=== PATIENT | male | born 1980 | race Caucasian/White ===

== ENCOUNTER 2018-05-22 05:45 | Day surgery (SDC) | payer OTHER ==
[2018-05-22] MEDS ORDERED: CEFAZOLIN 2 GM/50 ML (PMX) 50 ML IVPB (06:00)
[2018-05-22] MEDS: SOD CHLORIDE 0.9% 1,000 ML IV (06:16)
[2018-05-22] MEDS ORDERED: LIDOCAINE 2% (SDV) 5 ML INJ (07:00)
[2018-05-22] MEDS ORDERED: BUPIVACAINE 0.5%/EPI (SDV) 30 ML INJ (07:14)
[2018-05-22] MEDS ORDERED: METOCLOPRAMIDE 10 MG INJ IV (07:30)
[2018-05-22] MEDS ORDERED: HYDROmorphONE 1 MG/5 ML IV SYRINGE IV (07:30)
[2018-05-22] MEDS ORDERED: ALBUTEROL 0.083% (NEB) 2.5 MG/3 ML AMP HHN (07:30)
[2018-05-22] MEDS ORDERED: DIPHENHYDRAMINE 50 MG INJ IV (07:30)
[2018-05-22] MEDS ORDERED: FENTAnyl 50 MCG/ML VIAL IV ×2 (07:30)
[2018-05-22] MEDS ORDERED: MEPERIDINE 25 MG INJ IV (07:30)
[2018-05-22] MEDS ORDERED: FENTAnyl 50 MCG/ML VIAL (07:37)
[2018-05-22] MEDS ORDERED: MIDAZOLAM 1 MG/ML 2 ML INJ (07:52)
[2018-05-22] MEDS ORDERED: PROPOFOL 20 ML (07:57)
[2018-05-22] MEDS ORDERED: CEFAZOLIN 1 GM INJ (07:57)
[2018-05-22] MEDS ORDERED: ROCURONIUM 50 MG INJ (07:57)
[2018-05-22] MEDS ORDERED: SUGAMMADEX SODIUM 200 MG/2 ML VIAL IV (07:57)
[2018-05-22] MEDS ORDERED: SUCCINYLCHOLINE CHLORIDE 100 MG/5 ML SYG IV (07:57)
[2018-05-22] MEDS ORDERED: KETOROLAC 30 MG INJ IV (08:30)
[2018-05-22] MEDS ORDERED: morphine 2 MG INJ IV (08:30)
[2018-05-22] MEDS ORDERED: IBUPROFEN 600 MG TAB PO (08:30)
[2018-05-22] MEDS: BUPIVACAINE 0.5%/EPI (SDV) 30 ML INJ INJ (08:30)
[2018-05-22] MEDS ORDERED: HYDROCODONE/APAP (5/325) TAB PO ×2 (08:30)
[2018-05-22] MEDS ORDERED: ONDANSETRON 4 MG INJ IV (08:30)
[2018-05-22] MEDS: HYDROmorphONE 1 MG/5 ML IV SYRINGE IV ×2 (08:59→09:08)
[2018-05-22] MEDS: ONDANSETRON 4 MG INJ IV (09:01)
== END 2018-05-22 11:10 | disposition home or self-care (01) ==
LOC: SDS 05:45
DX: K60.4 Rectal fistula (principal); K64.8 Other hemorrhoids; I10 Essential (primary) hypertension; E11.8 Type 2 diabetes mellitus with unspecified complications; Z72.0 Tobacco use
CPT/HCPCS: 46270; 82962